=== PATIENT | male | born 1990 | race Caucasian/White ===

== ENCOUNTER 2020-07-05 12:01 | Emergency (ER) | payer OTHER ==
[~2020-07-05] VITALS: Ht 185.4 cm; Wt 99.8 kg
[2020-07-05 12:01] VITALS: BP_SYST 140
--- NOTE | 2020-07-05 12:05 | NUR ---
Pt triaged and placed in [facility].
--- NOTE | 2020-07-05 12:05 | NUR ---
Pt walked in to ER with c/o laceration to left pinky and partial amputation. Pain scale 10/10. Moderate bleeding noted, pressure applied. V/S stable at this time.
--- NOTE | 2020-07-05 12:10 | NUR ---
ER Dr. Sinha at bedside examining patient.
[2020-07-05] MEDS ORDERED: LIDOCAINE 1% 10 MG/ML, 20 ML MDV INJ ONE (12:15)
[2020-07-05] MEDS ORDERED: fentaNYL CITRATE/PF 100 MCG/2 ML AMP IVP ONE (12:30)
[2020-07-05] MEDS ORDERED: LIDOCAINE 1%, 20 ML MDV 20 ML ONE (13:22)
--- NOTE | 2020-07-05 13:30 | NUR ---
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 Dr. Sinha applied sutures using sterile technique. Edges well approximated. Site cleansed with Betadine and NS. Dressing of Vasaoline gauze and non-stick wrap applied to site. No bleeding noted. Pt tolerated well.
[2020-07-05] MEDS ORDERED: HYDR-4272 PO (14:19)
[2020-07-05] MEDS ORDERED: MORPHINE 4 MG/ML INJ. SYRINGE IVP ONE (14:30)
[2020-07-05] MEDS ORDERED: ceFAZolin SODIUM 2 GM in D5W 100 ML IV ONE (14:30)
--- NOTE | 2020-07-05 15:15 | NUR ---
Patient given written and verbal discharge instructions and verbalizes understanding. ER MD discussed with patient the results and treatment provided. Patient in stable condition. ID arm band removed. IV catheter removed intact and dressing applied, no active bleeding. Rx of Flexeril and Bowie given. Patient educated on pain management and to follow up with PMD. Pain Scale 0. Opportunity for questions provided and answered. Medication side effect fact sheet provided.
[2020-07-05 15:40] VITALS: BP_SYST 140
== END 2020-07-05 15:15 | disposition home or self-care (01) ==
LOC: SED 12:01
DX: Z89.022 Acquired absence of left finger(s) (principal)
CPT/HCPCS: 73120; 96365; 96375; 99284; J2001; J3010